=== PATIENT | female | born 1975 | race Caucasian/White ===

== ENCOUNTER → 2017-06-30 07:28 | Outpatient (CLI) | payer OTHER ==
[~2017-06-30] VITALS: Ht 152.4 cm; Wt 64.4 kg
[~2017-06-30 07:28] MED LIST: LASIX20 MG; LASIX20 MG PO; LOSARTAN POTASS50 MG PO
== END | disposition home or self-care (01) ==
LOC: PPHC 07:28
DX: I10 Essential (primary) hypertension (principal); Z00.00 Encounter for general adult medical examination without abnormal findings

== ENCOUNTER 2017-07-08 07:15 | Outpatient (CLI) | payer OTHER | END 2017-07-08 07:22 | disposition home or self-care (01) | LOC: LAB 07:15 | DX: I10 Essential (primary) hypertension (principal); Z00.00 Encounter for general adult medical examination without abnormal findings ==

== ENCOUNTER 2017-07-09 07:21 | Outpatient (CLI) | payer OTHER | END 2017-07-09 07:28 | disposition home or self-care (01) | LOC: LAB 07:21 | DX: Z00.00 Encounter for general adult medical examination without abnormal findings (principal) ==